=== PATIENT | female | born 1970 | race Caucasian/White ===

== ENCOUNTER 2024-10-12 09:45 | Outpatient (CLI) | payer BC, SELFPAY ==
--- OUTSIDE RECORDS SUMMARY | 2024-09-04 10:19 | XMS_ITS | Encounter Summary ---
Author Organization [facility] Address [address] [place] [address] Care Team Providers Care Farm Reporter Name Role Phone Veronica Morton M.D. Primary Care Provider [phone] Reason for Referral * Outpatient (Routine) - Closed Specialty Diagnoses / Procedures Referred By Contac t Referred To Contact Diagnoses Pain Hip Right Procedures DX Hip And Pelvis Right 2-3 Views DX Hip And Pelvis Right 4+ Views Veronica Morton M.D. [address] [place] [phone] Phone: tel: fax: [facility] Referral ID Status Reason Start Date Expiration Date Visits Re quested Visits Authorized [id number] Closed 07/25/2024 10/25/2025 1 1 Reason for Visit * Outpatient (Routine) - Closed Specialty Diagnoses / Procedures Referred By Contac t Referred To Contact Diagnoses Pain Hip Right Procedures DX Hip And Pelvis Right 2-3 Views DX Hip And Pelvis Right 4+ Views Veronica Morton M.D. [address] [place] [phone] Phone: tel: [facility] Referral ID Status Reason Start Date Expiration Date Visits Re quested Visits Authorized [id number] Closed 07/25/2024 10/25/2025 1 1 Encounter Details Date Type Department Care Team (Latest Contact Info) Description 09/04/2024 10:19 AM CDT - 09/04/2024 11:59 PM CDT Hospital Encounter Department of Radiology in [address] [phone] Veronica Morton M.D. [address] [place] [phone] Pain Hip Right Discharge Disposition: Home or Self Care Social History Tobacco Use Types Packs/Day Years Used Date Smoking Tobacco: Former Cigarettes 0.5 5 1 05/15/1985 - 03/15/1991 Smokeless Tobacco: Never Alcohol Use Standard Drinks/Week Comments Not Currently 0 (1 standard drink = 0.6 oz pur e alcohol) [facility] [employer] Answer Date Recorded In the past 12 months has e [employer], gas, oil, or water [employer] threatened to shut off services in your home? No 08/30/2024 Humiliation, Afraid, Rape, and Kick questionnair e Answer Date Recorded Within the last year, have y ou been afraid of your partner or ex-partner? No 07/15/2022 Within the last year, have y ou been humiliated or emotionally abused in other ways by your partner or ex-partner? No Within the last year, have y ou been kicked, hit, slapped, or otherwise physically hurt by your partner or ex-partner? No 07/15/2022 Within the last year, have y ou been raped or forced to have any kind of sexual activity by your partner or ex-partner? No 07/15/2022 Social Connection and Isolat ion Panel [NHANES] Answer Date Recorded In a typical week, how many times do you talk on the phone with family, friends, or neighbors? More than three times a week 07/15/2022 How often do you get togethe r with friends or relatives? More than three times a week 07/15/2022 How often do you attend [facility] or cheondoism services? 1 to 4 times per year 07/15/2022 Do you belong to any clubs o r organizations such as confucianist groups, unions, fraternal or athletic groups, or school groups? No 07/15/2022 How often do you attend meet ings of the clubs or organizations you belong to? Never 07/15/2022 Are you , , di vorced, , never , or living with a partner? 07/15/2022 AUDIT-C Answer Date Recorded Q1: How often do you have a drink containing alc ohol? Never 07/15/2022 Average Number of Drinks Not on file 023 Frequency of Binge Drinking Not on file 06/25 Overall Financial Resource Strain (CARDIA) Answe r Date Recorded How hard is it for you to pa y for the very basics like food, housing, medical care, and heating? Patient declined 07/15/2022 PHQ-2 Answer Date Recorded PHQ-2 Score 0 08/06/2024 [facility] - Occupational Stress Questionnaire Answer Date Recorded Do you feel stress - tense, restless, nervous, or anxious, or unable to sleep at night because your mind is troubled all the time - these days? Only a little 07/15/2022 Exercise Vital Sign Answer Date Recorde d On average, how many days pe r week do you engage in moderate to strenuous exercise (like a brisk walk)? 5 days 08/30/2024 On average, how many minutes do you engage in exercise at this level? 30 min 08/30/2024 Hunger Vital Sign Answer Date Recorded Within the past 12 months, y ou worried that your food would run out before you got the money to buy more. Never true 08/31/19 25 Within the past 12 months, t he food you bought just didn't last and you didn't have money to get more. Never true 08/30/2024 PRAPARE - Transportation Answer Date Re corded In the past 12 months, has l ack of transportation kept you from medical appointments or from getting medications? No 10/2024 In the past 12 months, has l ack of transportation kept you from meetings, work, or from getting things needed for daily living? No 08/30/2024 Depression Answer Date Recor ded PHQ-9 Total Score (max 27) 0 08/06 Nutrition Answer Date Recorded On average, how many serving s of fruits and vegetables do you eat per day (serving size is equal to 1 cup or approximately the size of a tennis ball)? 0-2 08/30/2024 Dental Answer Date Recorded Dental: Regular Dentist Yes 05/02/19 Employment Answer Date Recorded Employment status Retired 08/30/2024 Housing Stability Answer Date Recorded What is your living situation today? I have a [facility] place to live 08/30/2024 Education Answer Date Recorded What is the highest level of school you have completed or the highest degree you have received? Associate degree: academic program 05/02/2021 Comments No Sex and Gender Information Value Date Recorded Sex Assigned at Female 05/02/2021 1:59 PM CORE LOADER Legal Sex Female 8:17 AM CORE LOADER Gender Identity Female 05/02/2021 1:59 PM CORE LOADER Sexual Orientation Straight 05/02/2021 1: 59 PM CORE LOADER documented as of this encounter Medications at Time of Discharge albuterol 90 mcg/actuation inhalerIndications: Asthma Mild Intermittent (HCC) Inhale 1 puff every 6 (six) hours as needed for wheezing. 18 g 3 2 azithromycin (Zithromax) 500 mg tabletIndications:Tamara coats Travel And Immunization To use as needed for either Traveler's diarrhea or sinus infection during travel: For moderate diarrhea, 3-6 loose stools per day or 3-4 loose stools lasting greater than 2 days, begin Azithromycin 500 mg daily for up to 3 days. If no mprovement within 24 hours, take 2nd of the 3 azithromycin doses; if not improved after 48 hours, take third dose. For sinus pressure and pain lasting greater than 7 days with worsening or no improvement, can take 500mg once daily for 5 days., 5 tablet 5 cetirizine (ZyrTEC) 10 mg tablet Take 10 mg by mouth daily. estradioL (Estrace) 0.5 mg tablet Take 1 tablet (0.5 mg total) by mouth daily. 90 tablet 3 4 fluconazole (Diflucan) 150 mg tabletIndications:V aginitis Atrophic Take 1 tablet (150 mg total) by mouth daily. Can repeat in 3 days if with continued symptoms. 2 tablet 5 gabapentin (Neurontin) 100 mg capsule TAKE 1-3 CAPSULES (100 TO 300 MG) BY MOUTH AT BEDTIME 270 capsule 3 5 hydrocortisone (HYTONE) 2.5 % creamIndications:Pr uritus Apply 1 application. topically 2 (two) times a day as needed for irritation or rash. Apply to ears up to twice daily for 2 weeks in a row as needed for itching. If using for 2 weeks straight, take one week off prior to restarting. 30 g 11 3 hydrOXYzine (VistariL) 25 mg capsule Take 1 capsule (25 mg total) by mouth every 6 (six) hours as needed for anxiety. 30 capsule 5 lisinopriL 20 mg tablet TAKE 1 TABLET (20 MG) BY MOUTH DAILY 90 tablet 3 5 metroNIDAZOLE (FlagyL) 500 mg tabletIndications:V aginosis Bacterial Take 1 tablet (500 mg total) by mouth 2 (two) times a day. 14 tablet 4 omeprazole (PriLOSEC) [address] capsule TAKE 1 CAPSULE (40 MG) BY MOUTH DAILY 90 capsule 3 5 rizatriptan WIND TURBINE PERFORMANCE ENGINEER (Maxalt-WIND TURBINE PERFORMANCE ENGINEER) 10 mg disintegrating tablet Dissolve 1 tablet (10 mg total) in the mouth daily as needed for migraine. 12 tablet 3 5 SUMAtriptan (IMITREX) 100 mg tablet Take 100 mg by mouth as needed. 5 triamcinolone (Kenalog) 0.1 % creamIndications:De rmatitis Apply 1 Application topically as needed for rash. 30 g 11 [address] 1 each under the tongue daily. Med Name: Semaglutide/pyrid oxine HCL 10mg 250 OMG zolpidem (Ambien CR) 12.5 mg ER tablet TAKE ONE TABLET BY MOUTH EVERY DAY AT BEDTIME NEEDED FOR SLEEP 90 tablet 1 5 azelastine (Astelin) 137 mcg/spray (0.1 %) nasal sprayIndications:Al lergy Seasonal INSTILL 1TO 2 SPRAYS INTO EACH NOSTRIL TWO TIMES A DAY NEEDED FOR RHINITIS OR ALLERGIES. 30 mL 3 5 05/20/20 25 doxepin (SINEquan) 10 mg capsuleIndications: Pruritus TAKE 1 CAPSULE(10 MG) BY MOUTH AT BEDTIME NEEDED FOR SLEEP 90 capsule 3 3 09/30/19 25 naproxen (NAPROSYN) 500 mg tabletIndications:P ain Hip Bilateral TAKE 1 TABLET(500 MG) BY MOUTH TWICE DAILY NEEDED FOR PAIN 180 tablet 3 4 09/30/19 25 ICU RN Thyroid 60 mg tabletIndications:H ypothyroidism take 1 tablet by mouth daily 90 tablet 3 4 09/13/19 25 progesterone (PROMETRIUM) 100 mg capsuleIndications: Deficiency Estrogen Post Menopausal TAKE 1 CAPSULE(100 MG) BY MOUTH DAILY 90 capsule 3 4 09/14/19 25 thyroid, pork, 30 mg tablet Take 1 tablet (30 mg total) by mouth daily. TAKE 1 TABLET BY MOUTH DAILY, IN ADDITION TO 60 MG FOR TOTAL OF 90 MG DAILY 90 tablet 3 4 09/15/19 25 documented as of this encounter Plan of Treatment Not on file documented as of this encounter Procedures Procedure Name Priority Date/Time Associated Diagnosis Comments DX HIP AND PELVIS RIGHT 2-3 VIEWS RAD - Routine (most inpatients and all outpatients) 09/04/2024 10:30 AM CDT Pain Hip Right documented in this encounter Results * DX Hip And Pelvis Right 2-3 Views (09/04/2024 10:30 AM CDT) Anatomical Region Laterality Modality Lower Extremity, Pelvis, Hip , Musculoskeletal RST LOS, Musculoskeletal ARZ LOS, Muskuloskeletal FLA LOS Right Digit al Radiography Impressions 09/04/2024 12:21 PM CDT Bilateral acetabular over coverage, 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 Normal alignment. No acute fracture. SI joints and pubic symphysis are congruent. Mild lumbar spondylosis. Enthesopathic changes at the greater trochanters bilaterally and along the lateral aspect of the proximal left femoral diaphysis. Pelvic phleboliths. Soft tissue is within normal limits. No direct comparison available. Narrative 09/04/2024 12:21 PM CDT EXAM: DX HIP AND PELVIS RIGHT 2-3 VIEWS Procedure Note Lilia Bauman D.O. - 09/04/2024 EXAM: DX HIP AND PELVIS RIGHT 2-3 VIEWS IMPRESSION: Bilateral acetabular over coverage, seen with pincer-type femoroacetabularimpingement. Bilateral coxa profunda. Mild right and moderate left hipdegenerative joint disease. Normal alignment. No acute fracture. SI jointsand pubic symphysis are congruent. Mild lumbar spondylosis. Enthesopathic changes at thegreater trochanters bilaterally and along the lateral aspect of theproximal left femoral diaphysis. Pelvic phleboliths. Soft tissue is withinnormal limits. No direct comparison available. us Veronica Morton M.D. [facility] PROC EDURES Final Result documented in this encounter Visit Diagnoses Diagnosis Pain Hip Right documented in this encounter Additional Health Concerns Assessment Noted Time PHQ-9 Depression Total Score: 0 08/07/19 25 8:04 PM CDT documented as of this encounter Care Teams Farm Reporter Relationship Specialty Start Date End Date Veronica Mortno M.D. [address] [place] [phone] PCP - General Family Medicine 04/21/21 documented as of this encounter
--- OUTSIDE RECORDS SUMMARY | 2024-09-05 08:30 | XMS_ITS | Encounter Summary ---
Author Organization [facility] Address [address] [place] [address] Care Team Providers Care Service Order Taker Name Role Phone Veronica Morton M.D. Primary Care Provider [phone] Reason for Referral * Outpatient (Routine) - Authorized Specialty Diagnoses / Procedures Referred By Contac t Referred To Contact Diagnoses Pain Hip Right Procedures ddu-mfvz-dpwmnrnn-elbow arthrocentesis: R hip joint Nelly Damian APRN, C.N.P., D.N.P. [address] [place] [address] Phone: tel: fax: [facility] Referral ID Status Reason Start Date Expiration Date V isits Requested Visits Authorized [id number] Authorized 09/05/2024 12/06/2025 1 1 * Outpatient (Routine) - Closed Specialty Diagnoses / Procedures Referred By Contac t Referred To Contact Diagnoses Pain Hip Right Procedures FL Fluoro Less Than 1 Hour Nelly Damian APRN, C.N.P., D.N.P. [address] [place] [phone] Phone: tel: fax: [facility] Region Referral ID Status Reason Start Date Expiration Date Visits Re quested Visits Authorized [id number] Closed 09/05/2024 12/06/2025 1 1 Reason for Visit * Reason Comments Pain * Outpatient (Routine) - Closed Specialty Diagnoses / Procedures Referred By Adele rabago Referred To Contact Orthopedic Surgery Diagnoses Pain Hip Right Veronica Morton M.D. [address] [place] [phone] Phone: tel: fax: [facility] Region Referral ID Status Reason Start Date Expiration Date Visits Re quested Visits Authorized [id number] Closed 07/25/2024 01/24/2026 1 1 Encounter Details Date Type Department Care Team (Latest Contact Info) Description 09/05/2024 8:30 AM CDT Comprehensive Visit Department of Orthopedic Surgery in [address] [phone] Nelly Damain APRN, C.N.P., D.N.P. [address] [place] [phone] Pain Hip Right Discharge Disposition: Home or Self Care Social History Tobacco Use Types Packs/Day Years Used Date Smoking Tobacco: Former Cigarettes 0.5 5 1 05/15/1985 - 03/15/1991 Smokeless Tobacco: Never Tobacco Cessation:Counseling Given: Not Answered Alcohol Use Standard Drinks/Week Comments Not Currently 0 (1 standard drink = 0.6 oz pur e alcohol) [facility] Utilities Answer Date Recorded In the past 12 months has [employer], gas, oil, or water company threatened to shut off services in your [...] week 07/15/2022 How often do you attend chur ch or jehovah's witness services? 1 to 4 times per year 07/15/2022 Do you belong to any clubs o r organizations such as amish groups, unions, fraternal or athletic groups, or [...] Answer Date Recorded PHQ-2 Score 0 08/06/2024 [facility] - Occupational Stress [...] your living situation today? I have a [facility] place to live 08/30/2024 Education Answer Date Recorded What is the highest level of school you have completed or the highest degree you have received? Associate degree: academic program 05/02/2021 Comments No Sex and Gender Information Value Date Recorded Sex Assigned at Female 05/02/2021 1:59 PM ESCROW REPRESENTATIVE Legal Sex Female 8:17 AM ESCROW REPRESENTATIVE Gender Identity Female 05/02/2021 1:59 PM ESCROW REPRESENTATIVE Sexual Orientation Straight 05/02/2021 1: 59 PM ESCROW REPRESENTATIVE documented as of this encounter Progress Notes * Nelly Damian, LUCÍA, C.N.P., D.N.P. - 09/05/2024 8:30 AM CDT Milvia is a pleasant 54-year-old who comes in today with concerns regarding right hip pain. She statesthat she has had this for several months and has pain in her right buttock area that radiates down to the trochanteric area. She denies any particular groin pain rarely on occasion with certain motions she would note a little discomfort toward the groin. She states that she also notes occasional numbness that goes down her leg especially after standing for a period of time and notes a pop that occurs in her hip. Her symptoms seem to be worse at night. She has had a corticosteroid injection in the past. Physical exam-right hip with flexion of 100??. She has no particular pain with abduction or adduction. She does have some mild trochanteric bursa pain. She has some mild lumbar spinal pain to palpation. She does also have some pain into the buttock area. Strength is 4+ out of 5 when compared to thecontralateral side with leg lifts. Diagnostic studies x-ray shows Bilateral acetabular over coverage, seen with pincer-type [...] within normal limits. No direct comparison available. Impression and plan-Milvia is a 54-year-old who comes in today with concerns regarding her right hip pain. Most of her pain is in the buttock area which clearly could be because of her hip noting her x-ray however clinically her exam was not concerning or obvious today. And with symptoms of her leg becoming numb and weak at times I do worry if this could be related to her back. For this reason we discussed doing a diagnostic injection under fluoroscopy. She agrees and understands this plan. After brief discussion, consent form was obtained, per sterile technique under fluoroscopy 5 cc of 1% lidocaine and 5 cc of 0.25% Marcaine was injected into the joint space without difficulty and patient saskia erated the procedure well. She did ambulate out of the clinic and was given an assignment to watch and report the effect of this injection which she will contact us by portal. If indeed she finds improvement in her symptoms with the buttock in the lateral leg pain with the injection we will pursue a right total hip arthroplasty. If not we will further refer her to spine/pain clinic. She agrees and understands this plan and her questions were answered documented in this encounter Procedure Notes * Stephie Castellon L.P.N. - 09/05/2024 8:30 AM CDTAssociated Order(s): sih-zhrf-gjfegwea-elbow arthrocentesis: R hip joint Post-Procedure Diagnose(s): Pain Hip Right Hip site - R hip joint Performed by: Nelly Damian APRN, C.N.PTanisha, Migue.NTanishaP. Authorized by: Nelly Damian APRN, C.N.P., Migue.N.P. PROCEDURE DETAILS Indications: right hip pain Procedure Location hip Hip site -R hip joint Needle gauge: 21 G, length: 3 in Fluoroscopic image guidance used to localize target, identify at risk structures, and dynamically used to direct therapy to the target. Image(s) acquired and saved. Procedural Medication The following medications were administered at the target site(s) Local anesthetic: 10 mL BUPivacaine PF 0.25 % (2.5 mg/mL); 5 mL lidocaine 10 mg/mL (1 %) CONSENT Consent obtained: written (Risks, benefits and alternatives were discussed and a written Informed Consent was obtained. Please see Informed Consent form for further details.) UNIVERSAL PROTOCOL All relevant documentation and testing were reviewed and available. All required blood products, implants, devices and or special equipment were made available as applicable. Pre-procedure verification was conducted and the correct site was marked if required. A fire risk and smoke assessment were done as applicable. The procedural time-out to verify correct patient, correct side/site, and procedure was conducted prior to performing the procedure and confirmed in a procedural pause. PRE-PROCEDURE DETAILS Indications: right hip pain Appropriate hand hygiene, gown, cap, mask, protective eyewear, sterile gloves, skin preparation, sterile drape, and strict aseptic technique were utilized as applicable for the procedure. Site preparation: povidone-iodine POST-PROCEDURE DETAILS Procedure completed successfully: yes Complications: no apparent complications Discharge instructions: ice area as needed for comfort and follow-up with ordering provider Comments The procedure site was marked by the proceduralist and verified with the patient. A time out/final pause was completed with verification of patient identity using two identifiers, confirmation of thesite and side(s), agreement on the procedure to be performed, and appropriate fire risk assessment. documented in this encounter Plan of Treatment Not on file documented as of this encounter Procedures Procedure Name Priority Date/Time Associated Diagnosis Comments [place] ARTHCS ASP/INJ MJR JT WO US Routine 09/05/2024 8:30 AM CDT Pain Hip Right documented in this encounter Results * FL Fluoro Less Than 1 Hour (09/05/2024 9:21 AM CDT) Narrative [address] VIVEROSN - 09/05/2024 9:21 AM CDT This exam does not require a radiologist review or interpretation. Please refer to the patient's medical record on this date for clinical details. us Nelly Damian APRN, C.N.P., D.N.P. IMG FLUOROSCO PY PROCEDURES Final Result [id number] * [place] ARTHCS ASP/INJ MJR JT WO US (09/05/2024 8:30 AM CDT) Narrative [facility] - 09/05/2024 8:30 AM CDT Stephie Castellon L.P.N. 09/05/2024 3:48 PM Hip site - R hip joint Performed by: Nelly Damian APRN, C.N.P., D.N.P. Authorized by: Nelly Damian APRN, C.N.P., D.N.P. PROCEDURE DETAILS Indications: right hip pain Procedure Location hip Hip site -R hip joint Needle gauge: 21 G, length: 3 in Fluoroscopic image guidance used to localize target, identify at risk structures, and dynamically used to direct therapy to the target. Image(s) acquired and saved. Procedural Medication The following medications were administered at the target site(s) Local anesthetic: 10 mL BUPivacaine PF 0.25 % (2.5 mg/mL); 5 mL lidocaine 10 mg/mL (1 %) CONSENT Consent obtained: written (Risks, benefits and alternatives were discussed and a written Informed Consent was obtained. Please see Informed Consent form for further details.) UNIVERSAL PROTOCOL All relevant documentation and testing were reviewed and available. All required blood products, implants, devices and or special equipment were made available as applicable. Pre-procedure verification was conducted and the correct site was marked if required. A fire risk and smoke assessment were done as applicable. The procedural time-out to verify correct patient, correct side/site, and procedure was conducted prior to performing the procedure and confirmed in a procedural pause. PRE-PROCEDURE DETAILS Indications: right hip pain Appropriate hand hygiene, gown, cap, mask, protective eyewear, sterile gloves, skin preparation, sterile drape, and strict aseptic technique were utilized as applicable for the procedure. Site preparation: povidone-iodine POST-PROCEDURE DETAILS Procedure completed successfully: yes Complications: no apparent complications Discharge instructions: ice area as needed for comfort and follow-up with ordering provider Comments The procedure site was marked by the proceduralist and verified with the patient. A time out/final pause was completed with verification of patient identity using two identifiers, confirmation of the site and side(s), agreement on the procedure to be performed, and appropriate fire risk assessment. Nelly Damian APRN, C.N.P., D.N.P. PROCEDURE/MIN OR SURGICAL ORDERABLES Final Result [facility] NA documented in this encounter Visit Diagnoses Diagnosis Pain Hip Right Pain Hip Right documented in this encounter Administered Medications Inactive Administered Medications - up to 3 most recent administrations Medication Order MAR Action Action Date Dose Rate Site BUPivacaine PF 0.25 % (2.5 mg/mL) injection 10 mL (Marcaine) 10 mL, injection, One-Time Injection, Starting on Wed09/05/24 at 0830, For 1 doseIndications:Pain Hip Right Given 09/05/2024 8:30 AM CDT 10 mL lidocaine 10 mg/mL (1 %) injection 5 mL (Xylocaine) 5 mL, injection, One-Time Injection, Starting on Wed09/05/24 at 0830, For 1 doseIndications:Pain Hip Right Given 09/05/2024 8:30 AM CDT 5 mL documented in this encounter Additional Health Concerns Assessment Noted Time PHQ-9 Depression Total Score: 0 08/07/19 25 8:04 PM CDT documented as of this encounter Care Teams Service Order Taker Relationship Specialty Start Date End Date Veronica Morton M.D. [id number] [phone] PCP - General Family Medicine 04/21/21 documented as of this encounter
--- OUTSIDE RECORDS SUMMARY | 2024-09-05 09:01 | XMS_ITS | Encounter Summary ---
Author Organization [facility] Address [address] [place] [address] Care Team Providers Care Procurement Inspector Name Role Phone Veronica Morton M.D. Primary Care Provider [phone] Reason for Referral * Outpatient (Routine) - Closed Specialty Diagnoses / Procedures Referred By Contac t Referred To Contact Diagnoses Pain Hip Right Procedures FL Fluoro Less Than 1 Hour Nelly Damian APRN, C.N.P., D.N.P. [address] [place] [address] Phone: tel: fax: [facility] Referral ID Status Reason Start Date Expiration Date Visits Re quested Visits Authorized [id number] Closed 09/05/2024 12/06/2025 1 1 Reason for Visit * Outpatient (Routine) - Closed Specialty Diagnoses / Procedures Referred By Contac t Referred To Contact Diagnoses Pain Hip Right Procedures FL Fluoro Less Than 1 Hour Nelly Damian APRN, C.N.P., D.N.P. [address] [place] [address] Phone: tel: fax: [facility] Region Referral ID Status Reason Start Date Expiration Date Visits Re quested Visits Authorized [id number] Closed 09/05/2024 12/06/2025 1 1 Encounter Details Date Type Department Care Team (Latest Contact Info) Description 09/05/2024 9:01 AM CDT - 09/05/2024 11:59 PM CDT Hospital Encounter Department of Radiology in [address] [phone] Nelly Damian, LUCÍA, C.N.P., D.N.P. [address] [place] [address] [phone] Pain Hip Right Discharge Disposition: Home or Self Care Social History Tobacco Use Types Packs/Day Years Used Date Smoking Tobacco: Former Cigarettes 0.5 5 1 05/15/1985 - 03/15/1991 Smokeless Tobacco: Never Alcohol Use Standard Drinks/Week Comments Not Currently 0 (1 standard drink = 0.6 oz pur e alcohol) [facility] Utilities Answer Date Recorded In the past 12 months has [email or web address], gas, oil, or water [employer] threatened to shut off services in your [...] week 07/15/2022 How often do you attend [facility] or church services? 1 to 4 times per year 07/15/2022 Do you belong to any clubs o r organizations such as jewish groups, unions, fraternal or athletic groups, or [...] Answer Date Recorded PHQ-2 Score 0 08/06/2024 [facility] of Occupat ional [facility] - Occupational Stress Questionnaire Answer Date Recorded [...] your living situation today? I have a [facility] place to live 08/30/2024 Education Answer Date Recorded What is the highest level of school you have completed or the highest degree you have received? Associate degree: academic program 05/02/2021 Comments No Sex and Gender Information Value Date Recorded Sex Assigned at Female 05/02/2021 1:59 PM PRODUCTION FOREMAN Legal Sex Female 8:17 AM PRODUCTION FOREMAN Gender Identity Female 05/02/2021 1:59 PM PRODUCTION FOREMAN Sexual Orientation Straight 05/02/2021 1: 59 PM PRODUCTION FOREMAN documented as of this encounter Medications at [...] MOUTH DAILY 90 capsule 3 5 rizatriptan TEMPERER (Maxalt-TEMPERER) 10 mg disintegrating tablet Dissolve 1 tablet [...] (Astelin) 137 mcg/spray (0.1 %) nasal sprayIndications:Al sugey Seasonal INSTILL 1TO 2 SPRAYS INTO EACH NOSTRIL TWO TIMES A DAY NEEDED FOR RHINITIS OR ALLERGIES. 30 mL 3 5 09/13/19 25 doxepin (SINEquan) 10 mg capsuleIndications: Pruritus TAKE 1 CAPSULE(10 MG) BY MOUTH AT BEDTIME NEEDED FOR SLEEP 90 capsule 3 3 09/30/19 25 naproxen (NAPROSYN) 500 mg tabletIndications:P ain Hip Bilateral TAKE 1 TABLET(500 MG) BY MOUTH TWICE DAILY NEEDED FOR PAIN 180 tablet 3 4 09/30/19 25 CLINICAL EDUCATION ASSISTANT Thyroid 60 mg tabletIndications:H ypothyroidism take 1 [...] Procedure Name Priority Date/Time Associated Diagnosis Comments FL FLUORO LESS THAN 1 HOUR RAD - Routine (most inpatients and all outpatients) 09/05/2024 9:21 AM CDT Pain Hip Right documented in this encounter Results * FL Fluoro Less Than 1 Hour (09/05/2024 9:21 AM CDT) Narrative [address] [facility] - 09/05/2024 9:21 AM CDT This exam does not require a radiologist review or interpretation. Please refer to the patient's medical record on this date for clinical details. us Nelly Damian APRN, C.N.P., D.N.P. IMG FLUOROSCO PY PROCEDURES Final Result [id number] [facility] documented in this encounter Visit Diagnoses Diagnosis Pain Hip Right documented in this encounter Additional Health Concerns Assessment Noted Time PHQ-9 Depression Total Score: 0 08/07/19 8:04 PM CDT documented as of this encounter Care Teams Procurement Inspector Relationship Specialty Start Date End Date Veronica Morton M.D. [address] [place] [address] [phone] PCP - General Family Medicine 04/21/21 documented as of this encounter
--- OUTSIDE RECORDS SUMMARY | 2024-09-29 08:20 | XMS_ITS | Encounter Summary ---
Author Organization [facility] Address [address] [place] [address] Care Team Providers Care Cemetery Workers Supervisor Name Role Phone Veronica Morton M.D. Primary Care Provider [phone] Reason for Visit * Outpatient (Routine) - Closed Specialty Diagnoses / Procedures Referred By Adele rabago Referred To Contact Dermatology Diagnoses Screening Examination Skin Cancer Veronica Morton M.D. [address] [place] [phone] Phone: tel: fax: [facility] Referral ID Status Reason Start Date Expiration Date Visits Re quested Visits Authorized [id number] Closed 07/25/2024 01/24/2026 1 1 Encounter Details Date Type Department Care Team (Latest Contact Info) Description 09/29/2024 8:20 AM CDT Comprehensive Visit Department of Dermatology in [address] [place] [address] Ivelisse Ruiz M.D. [address] [place] [address] Angioma De La Rosa (Primary Dx); Screening Examination Skin Cancer; Pruritus; Keratosis Seborrheic; Nevi Multiple; Dermatoheliosis; Dermatofibroma; Personal History Of Other Malignant Neoplasm Of Skin; Excoriation (Skin-Picking) Disorder Social History Tobacco Use Types Packs/Day Years Used Date Smoking Tobacco: Former Cigarettes 0.5 5 1 05/15/1985 - 03/15/1991 Smokeless Tobacco: Never Alcohol Use Standard Drinks/Week Comments Not Currently 0 (1 standard drink = 0.6 oz pur e alcohol) [facility] Utilities Answer Date Recorded In the past 12 months has e electric, gas, oil, or water company threatened to [...] often do you attend chur ch or alevism services? 1 to 4 times per year 07/15/2022 Do you belong to any clubs o r organizations such as lutheran groups, unions, fraternal or athletic groups, or [...] Answer Date Recorded PHQ-2 Score 0 08/06/2024 [facility] of Occupat ional [facility] - Occupational Stress Questionnaire Answer Date Recorded [...] money to buy more. Never true 08/31/19 Within the past 12 months, t he [...] your living situation today? [facility] 08/30/2024 Education Answer Date Recorded What is the highest level of school you have completed or the highest degree you have received? Associate degree: academic program 05/02/2021 Comments No Sex and Gender Information Value Date Recorded Sex Assigned at Female 05/02/2021 1:59 PM BAKER [employer]INT Legal Sex Female 8:17 AM BAKER PAINT Gender Identity Female 05/02/2021 1:59 PM BAKER PAINT Sexual Orientation Straight 05/02/2021 1: 59 PM BAKER PAINT documented as of this encounter Progress Notes * Ivelisse Ruiz M.D. - 09/29/2024 8:20 AM CDT [facility] Dermatology Supervised by: El Mckinnon M.D. Correspondence to: Ivelisse Ruiz M.D. SUBJECTIVE Chief Complaint/Reason for visit Skin cancer screening examination History of Present Illness Ms. Milvia Marquis is a 54 y.o. female who presents today, unaccompanied, for the above. She has a history of NMSC last treated with Mohs in [place] in 2019. She was adopted and doesn't know her familyhistory. She has a history of tanning bed use and blistering sunburns but started being diligent with sun protection after her Mohs surgery. Last visit: The patient is new to [facility]. Today: She describes she has one spot on the top of her head that concerned her but seems to have resolved. 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 No other skin concerns today. 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 most recently in [place] and [place].She has been in [place] for about 3 years now and likes it but feels of the [place] are really harsh. She goes to [place] every year with her family. Her child and grand kids live with her in [place]. OBJECTIVE Physical Examination General: Awake, alert, in no acute distress, with appropriate affect. Skin: Full skin examination of the scalp, face, neck, chest, abdomen, back, bilateral upper extremities, bilateral lower extremities, and buttocks, sparing the genitalia, performed and revealed: Elaine II skin type. Dermatoheliosis in sun exposed areas. Primarily over the trunk and also on the extremities, there are scattered small brown round maculesand papules; many of these are examined dermoscopically and reveal regular symmetric network and appear consistent with banal-appearing nevi. Scattered waxy, uhgmr-ks-jaejihomb, brown-montez macules, papules and plaques, consistent with seborrheic keratoses. Over the trunk, there are a few bright red dome shaped papules, consistent with de la rosa angiomas. Excoriated papules over the trunk and extremities consistent with patient reported skin picking ASSESSMENT / PLAN #1 Skin cancer screening examination #2 Personal history of non-melanoma skin cancer, as outlined in HPI #3 Dermatoheliosis Sun protection, sun avoidance, the warning signs and symptoms of skin cancer, and the proper use ofsunscreens were reviewed with the patient. Recommend daily use of SPF 30+ broad spectrum sunscreen. #4 Dermatofibroma(s) #5 De La Rosa angiomas #6 Seborrheic keratoses The benign nature of the skin lesion(s) was discussed with the patient. No treatment is required. Irecommend continued observation. Should symptoms or changes develop related to this condition, I would recommend a return visit for reassessment. #7 Excoriation disorder Patient has a history of excoriation disorder which was previously treated with p.r.n. doxepin 10 mg at nighttime as needed. She has not had this prescription for awhile and would like a refill today. She has some evidence on exam today of excoriated lesions. She does not have generalized xerosis or other, large areas of excoriation. We discussed additional workup but patient would like to just continue treatment with doxepin today. Plan: - Continue doxepin 10 mg at nighttime as needed for pruritus All questions answered. Follow-up: PRN; Return to primary care Sushila Ruiz M.D. Cosigned by El Dai M.D. at 09/29/2024 11:30 AM CDT Associated attestation - El Dai M.D. - 09/29/2024 11:30 AM CDT I saw and evaluated the patient, participating in the chapin portions of the service. I reviewed the resident???s note. I agree with the resident???s findings and plan. documented in this encounter Plan of Treatment Not on file documented as of this encounter Visit Diagnoses Diagnosis Angioma De La Rosa- Primary Screening Examination Skin Cancer Pruritus Keratosis Seborrheic Nevi Multiple Dermatoheliosis Dermatofibroma Personal History Of Other Malignant Neoplasm Of Skin Excoriation (Skin-Picking) Disorder documented in this encounter Additional Health Concerns Assessment Noted Time PHQ-9 Depression Total Score: 0 08/07/19 25 8:04 PM CDT documented as of this encounter Care Teams Cemetery Workers Supervisor Relationship Specialty Start Date End Date Veronica Morton M.D. [address] [place] [phone] PCP - General Family Medicine 04/21/21 documented as of this encounter
--- NOTE | 2024-10-12 10:15 | CRLHL7_ITS ---
For Patients: As a result of the Century Cures Act, medical imaging exams and procedure reports are released immediately into your electronic medical record. You may view this report before your referring provider. If you have questions, please contact your health care provider. Indication: Right hip pain Comparison: None. Procedure : Informed consent was obtained. The site was marked. Time-out was performed. The skin of the right hip was cleansed with ChloraPrep. A sterile drape was placed. 8 cc of 1 percent lidocaine was administered for superficial anesthesia. Subsequently a 22 gauge spinal needle was introduced into the right hip andrew joint under intermittent fluoroscopic guidance. Injection of 7 cc 1 percent lidocaine and 2 cc 40 milligram/cc Depo-Medrol then performed into the right hip joint. The needle was removed and hemostasis achieved with direct pressure. A dressing was placed. The patient tolerated the procedure well without immediate complication. Total fluoroscopy time 14 seconds. Impression: Successful fluoroscopically guided right hip injection with 80 milligrams of Depo-Medrol. Dictated by Gary Campos MD @ 10/12/2024 12:00:57 PM (Electronically Signed)
--- OUTSIDE RECORDS SUMMARY | 2024-10-13 00:56 | XMS_ITS | Clinical Summary ---
Author Organization [facility] Address [address] [place] [id number] Care Team Providers Care Junior Manufacturing Engineer Name Role Phone Veronica Morton M.D. Primary Care Provider [phone] Source Comments Patient records contain information from all sites at [facility]. For routine questions regarding patient records, call [phone] during business hours, M-F 8:00 AM - 5:00 PM Central Time. Record requests for emergency care only can be directed to [phone] at any time.[facility] Allergies Active Allergy Reactions Criticality Noted Date Comments Cat Dander Itching 05/09/2021 Grass Pollen Itching 04/26/2008 Levothyroxine Other (see comments) High 04/27/2019 Allergy to levothyroxine generic. Allergic to brand Synthroid. Ragweed Other (see comments),Itching 08/07/2010 Tree And Shrub Pollen Itching 04/26/2008 Medications * This document contains information received from the source organization and may not represent a complete record from that organization. cetirizine (ZyrTEC) 10 mg tablet Take 10 mg by mouth daily. Active SUMAtriptan (IMITREX) 100 mg tablet Take 100 mg by mouth as needed. 015 Active albuterol 90 mcg/actuation inhalerIndication s:Asthma Mild Intermittent (HCC) Inhale 1 puff every 6 (six) hours as needed for wheezing. 18 g 3 022 Active hydrocortisone (HYTONE) 2.5 % creamIndications: Pruritus Apply 1 application. topically 2 (two) times a day as needed for irritation or rash. Apply to ears up to twice daily for 2 weeks in a row as needed for itching. If using for 2 weeks straight, take one week off prior to restarting. 30 g 11 023 Active triamcinolone (Kenalog) 0.1 % creamIndications: Dermatitis Apply 1 Application topically as needed for rash. 30 g 11 024 Active estradioL (Estrace) 0.5 mg tablet Take 1 tablet (0.5 mg total) by mouth daily. 90 tablet 3 024 Active metroNIDAZOLE (FlagyL) 500 mg tabletIndications :Vaginosis Bacterial Take 1 tablet (500 mg total) by mouth 2 (two) times a day. 14 tablet 024 Active rizatriptan CARDIAC CATH TECH (Maxalt-CARDIAC CATH TECH) 10 mg disintegrating tablet Dissolve 1 tablet (10 mg total) in the mouth daily as needed for migraine. 12 tablet 3 025 Active azithromycin (Zithromax) 500 mg tabletIndications :Counseling Travel And Immunization To use as needed [...] once daily for 5 days., 5 tablet 025 Active fluconazole (Diflucan) 150 mg tabletIndications :Vaginitis Atrophic Take 1 tablet (150 mg total) by mouth daily. Can repeat in 3 days if with continued symptoms. 2 tablet 025 Active gabapentin (Neurontin) 100 mg capsule TAKE 1-3 CAPSULES (100 TO 300 MG) BY MOUTH AT BEDTIME 270 capsule 3 025 Active omeprazole (PriLOSEC) [address] capsule TAKE 1 CAPSULE (40 MG) BY MOUTH DAILY 90 capsule 3 025 Active lisinopriL 20 mg tablet TAKE 1 TABLET (20 MG) BY MOUTH DAILY 90 tablet 3 025 Active zolpidem (Ambien CR) 12.5 mg ER tablet TAKE ONE TABLET BY MOUTH EVERY DAY AT BEDTIME NEEDED FOR SLEEP 90 tablet 1 025 Active UNABLE TO FIND Place 1 each under the tongue daily. Med Name: Semaglutide/pyr idoxine HCL 10mg 250 OMG Active hydrOXYzine (VistariL) 25 mg capsule Take 1 capsule (25 mg total) by mouth every 6 (six) hours as needed for anxiety. 30 capsule 025 Active [place] Thyroid 60 mg tabletIndications :Hypothyroidism TAKE 1 TABLET BY MOUTH DAILY 90 tablet 3 025 Active azelastine (Astelin) 137 mcg/spray (0.1 %) nasal sprayIndications: Allergy Seasonal INSTILL 1-2 SPRAYS INTO EACH NOSTRIL 2 TIMES A DAY NEEDED FOR RHINITIS OR ALLERGIES 30 mL 3 025 Active progesterone (Prometrium) 100 mg capsuleIndication s:Deficiency Estrogen Post Menopausal Take 1 capsule (100 mg total) by mouth daily. 90 capsule 3 025 Active thyroid, pork, 30 mg tablet Take 1 tablet (30 mg total) by mouth daily. TAKE 1 TABLET BY MOUTH DAILY, IN ADDITION TO 60 MG FOR TOTAL OF 90 MG DAILY 90 tablet 3 025 Active naproxen (Naprosyn) 500 mg tabletIndications :Pain Hip Bilateral TAKE 1 TABLET (500 MG) BY MOUTH TWICE DAILY NEEDED FOR PAIN 180 tablet 3 025 Active doxepin (SINEquan) 10 mg capsuleIndication s:Pruritus Take 1 capsule (10 mg total) by mouth at bedtime as needed for sleep (and pitching). 60 capsule 3 025 Active doxepin (SINEquan) 10 mg capsuleIndication s:Pruritus TAKE 1 CAPSULE(10 MG) BY MOUTH AT BEDTIME NEEDED FOR SLEEP 90 capsule 3 023 2024 Discontinued(Karey tam) naproxen (NAPROSYN) 500 mg tabletIndications :Pain Hip Bilateral TAKE 1 TABLET(500 MG) BY MOUTH TWICE DAILY NEEDED FOR PAIN 180 tablet 3 024 2024 Discontinued thyroid, pork, 30 mg tablet Take 1 tablet (30 mg total) by mouth daily. 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 2/6 systolic. Hot Flash 05/10/2021 Overview (05/10/2021): Estradiol was not helpful previously. Progesterone has been helpful. Primary Osteoarthritis Hip Bilateral 05/10/2021 Overview (05/10/2021): Right greater than left. She currently uses Aleve or Naprosyn as needed for pain. She has received 1 prior cortisone injection which has been very helpful. Hypothyroidism 05/09/2021 Allergy Seasonal 05/09/2021 Overview (05/10/2021): Previously on allergy shots for 5 years when lived in [place]. Trees, weeds, shrubs, grasses are triggers. Asthma Mild Intermittent 05/09/2021 Overview (05/09/2021): Needs albuterol when allergies flare up. Flares once every 4 months twice daily for 5 days will use albuterol. Migraine Headache 05/09/2021 Overview (05/09/2021): 3 bad ones per year. She uses Maxalt as needed. When they come they last for 5 days at a time. She takes Sumatriptan only if she catches it too late. Maxalt is only if she catches it right away. Dermatitis Atopic 05/09/2021 Screening Cancer Colon 05/09/2021 Overview (05/09/2021): Added automatically from request for surgery [id number] Leukocytosis 07/17/2020 Overview (05/10/2021): Previously saw Hematology who was not concerned. It has been steadily elevated. Hypertension Essential Primary 03/03/2016 Anxiety 03/03/2016 Encounters * This document contains information received from the source organization and may not represent a complete record from that organization. Date Type Department Care Team Description 09/29/2024 8:20 AM CDT Comprehensive Visit Department of Dermatology in [place], [place] [address] [place] [address] [place] [address] Ivelisse Ruiz M.D. Angioma De La Rosa (Primary Dx); Screening Examination Skin Cancer; Pruritus; Keratosis Seborrheic; Nevi Multiple; Dermatoheliosis; Dermatofibroma; Personal History Of Other Malignant Neoplasm Of Skin; Excoriation (Skin-Picking) Disorder 09/26/2024 Refill Department of Family Medicine, [facility], in [address] [place] [address] Mattie Carter M.D. Med Refill 09/14/2024 Clinical Communication Department of Family Medicine, [facility], in [address] [phone] Veronica Morton M.D. Med Refill 09/13/2024 Refill Department of Family Medicine, [facility], in [address] [phone] Veronica Morton M.D. Med Refill 09/08/2024 Refill Department of Family Medicine, [facility], in [address] [phone] Veronica Morton M.D. Med Refill 09/05/2024 9:01 AM CDT - 09/05/2024 11:59 PM CDT Hospital Encounter Department of Radiology in [address] [phone] Nelly Damian APRN, C.N.Duncan, D.N.P. Pain Hip Right Discharge Disposition: Home or Self Care 09/05/2024 8:30 AM CDT Comprehensive Visit Department of Orthopedic Surgery in [address] [phone] Nelly Damian APRN C.N.Karishma., D.N.P. Pain Hip Right Discharge Disposition: Home or Self Care 09/04/2024 10:19 AM CDT - 09/04/2024 11:59 PM CDT Hospital Encounter Department of Radiology in [address] [phone] Veronica Morton M.D. Pain Hip Right Discharge Disposition: Home or Self Care 08/14/2024 10:52 AM CDT - 08/14/2024 11:59 PM CDT Hospital Encounter Department of Radiology in [address] [phone] Veronica Morton M.D. Nodule Thyroid Discharge Disposition: Home or Self Care 08/14/2024 Results Follow-Up Department of Family Medicine, [facility], in [address] [phone] Veronica Morton M.D. [place] Thyroid 08/14/2024 Orders Only Department of Family Medicine, [facility], in [address] [phone] Veronica Morton M.D. Nodule Thyroid (Primary Dx) 07/25/2024 9:20 AM CDT Office Visit Department of Family Medicine, [facility], in [address] [address] Veronica Morton M.D. General Medical Examination Adult (Primary Dx); Murmur Heart; Hypertension Essential Primary; Hypothyroidism; Arthritis Rheumatoid (HCC); Pain Hip Right; Panic Disorder Episodic Paroxysmal Anxiety; Sinusitis Acute; Screening Examination Skin Cancer; Asthma Mild Intermittent (HCC); Impaired Fasting Glucose; Screening Lipid Discharge Disposition: Home or Self Care 07/25/2024 Results Follow-Up Department of Family Medicine, [facility], in [address] [phone] Veronica Morton M.D. Comprehensive Metabolic Panel, Glucose, Fasting, Hemoglobin A1c, Additional followed-up results: 3 07/24/2024 9:24 AM CDT - 07/24/2024 11:59 PM CDT Hospital Encounter Department of Laboratory Medicine in [address] [phone] Veronica Morton M.D. PreDiabetes; Screening Lipid; Hypothyroidism; Leukocytosis Discharge Disposition: Home or Self Care 07/19/2024 Refill Department of Family Medicine, [facility], [address] [phone] Milvia Alcala APRN, C.N.P. Med Refill 07/14/2024 Refill Department of [facility] Medicine, [facility], [address] [phone] Veronica Morton M.D. Med Refill from Last 3 Months Immunizations Immunization Administration Dates Next Due Influenza, Seasonal, Injectable 02/20/2013,04/27 PCV20 07/22/2022 PPSV23 05/09/2021 RZV (SHINGRIX) 07/23/2023,07/22/2022 SARS-COV-2 (COVID-19) - MODERNA(Discontinued) 04/02/2021,11/07/2020,10/24/2020 Tdap 07/25/2024,09/14/2013 influenza vaccine quad (FLUZ ONE/FLUARIX) (6 months and older)(PF) 05/09/2021 Family History * Patient is adopted Medical History Relation Name Comments Colon cancer Aunt Paternal Colon cancer Father Stalin Prostate cancer Father Stalin Stroke Father Stalin Colon cancer Father's Sister Marsha Breast cancer Maternal Grandmother Unknown Colon cancer Paternal Great Grandfather Paternal Relation Name Status Comments Aunt Paternal Father Stalin Father's Sister Marsha Maternal Grandmother Unknown Paternal Great Grandfather Paternal Social History Tobacco Use Types Packs/Day Years Used Date Smoking Tobacco: Former Cigarettes 0.5 5 1 05/15/1985 - 03/15/1991 Smokeless Tobacco: Never Tobacco Cessation:Counseling Given: Not Answered Alcohol Use Standard Drinks/Week Comments Not Currently 0 (1 standard drink = 0.6 oz pur e alcohol) [facility] [employer] Answer Date Recorded In the past 12 months has e [employer], gas, oil, or water [employer] threatened to shut off services in your [...] often do you attend chur ch or adventism services? 1 to 4 times per year 07/15/2022 Do you belong to any clubs o r organizations such as quaker groups, unions, fraternal or athletic groups, or [...] Answer Date Recorded PHQ-2 Score 0 08/06/2024 [facility] - Occupational [...] your living situation today? I have a [facility] place to live 08/30/2024 Education Answer Date Recorded What is the highest level of school you have completed or the highest degree you have received? 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 Oxygen Saturation 98% 07/23/2023 11:01 AM CDT Inhaled Oxygen Concentration - - Weight 116 kg (256 lb 9.9 oz) 07/25/2024 9:19 AM CDT Height 171.3 cm (5' 7.44) 07/25/2024 9:19 AM CD T Body Mass Index 39.67 07/25/2024 9:19 AM CDT Plan of Treatment Health Maintenance Due Date Last Done Comments CT Colonography 1970 Cologuard 1970 HIV Screening 1970 Hepatitis B Vaccines (1 of 3 - 19+ 3-dose series) 1989 COVID-19 Vaccine ( season) 2023 04/02/2021, 11/07/2020, 10/24/2020 Influenza Vaccine (#1) 2024 , 02/20/2013, 04/27/2012 Mammogram 07/03/2025 07/03/2024, 11/2023, 06/02/2022, Additional history exists Creatinine Level (Kidney Function Test) 07/24/2025 07/24/2024, 08/06/2023, 07/21/2023, Additional history exists Fasting Glucose for Diabetes Screening 07/24/2025 07/24/2024, 07/24/2024, 08/06/2023, Additional history exists Potassium Level 07/24/2025 07/24/2024, 07/25, 07/21/2023, Additional history exists Sodium Level 07/24/2025 07/24/2024, 07/25, 07/21/2023, Additional history exists Thyroid Stimulating Hormone (TSH) test for thyroid function 07/24/2025 07/24/2024, 09/06/2023, 07/21/2023, Additional history exists Office Visit for Blood Pressure Check / Re-check 07/25/2025 07/25/2024 Visit: Chronic Disease, age 18+ 07/25/2025 07/25/2024, 07/23/2023 Colonoscopy 04/08/2028 04/08/2023 Colorectal Cancer Surveillance 04/08/2028 Lipid (Cholesterol) Screening 07/24/2029 07/24/2024, 07/21/2023, 07/09/2022, Additional history exists DTaP,Tdap,and Td Vaccines (3 - Td or Tdap) 07/25/2034 07/25/2024, 09/14/2013 Hepatitis C Screening Addressed 01/07/2016 (Performed elsewhere) Overridden with the intention of not completing the topic Pneumococcal vaccine (50+ years) Completed 07/22/2022, 05/09/2021 Zoster Vaccines Completed 07/23/2023, 07/22/2022 Depression Screening (Annual PHQ-2) Completed 07/25/2024, 07/20/2024 IPV Vaccines Aged Out No longer eligi ble based on patient's age to complete this topic Procedures Procedure Name Priority Date/Time Associated Diagnosis Comments FL FLUORO LESS THAN 1 HOUR RAD - Routine (most inpatients and all outpatients) 09/05/2024 9:21 AM CDT Pain Hip Right [place] ARTHCS ASP/INJ MJR JT WO US Routine 09/05/2024 8:30 AM CDT Pain Hip Right DX HIP AND PELVIS RIGHT 2-3 VIEWS RAD - Routine (most inpatients and all outpatients) 09/04/2024 10:30 AM CDT Pain Hip Right US THYROID RAD - Routine (most inpatients and all outpatients) 08/14/2024 11:44 AM CDT Nodule Thyroid CBC WITH DIFFERENTIAL, B Routine 07/24/2024 9:30 AM CDT Leukocytosis THYROID FUNCTION CASCADE, S Routine 07/24/2024 9:30 AM CDT Hypothyroidism LIPID PANEL, S Routine 07/24/2024 9:30 AM CDT Screening Lipid HEMOGLOBIN A1C, B Routine 07/24/2024 9:3 0 AM CDT PreDiabetes GLUCOSE, FASTING, S/P Routine 07/24/2024 9:30 AM CDT PreDiabetes COMPREHENSIVE METABOLIC PANEL, S/P Routine 07/24/2024 9:30 AM CDT PreDiabetes BI BREAST SCREENING BILATERAL WITH TOMOSYNTHESIS RAD - Routine (most inpatients and all outpatients) 07/03/2024 11:15 AM CDT Screening Mammogram Breast Cancer COLONOSCOPY Routine 04/08/2023 7:59 AM 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 Please refer to the patient's medical record on this date for clinical details. us Nelly Damian APRN, C.N.P., D.N.P. IMG FLUOROSCO PY PROCEDURES Final Result [id number] LOS SEMN * [place] ARTHCS ASP/INJ MJR JT WO US (09/05/2024 [...] OR SURGICAL ORDERABLES Final Result MMODAL NA * DX Hip And Pelvis Right 2-3 [...] limits. No direct comparison available. us Veronica PADILLA DIAGNOSTIC IMAGING PROC EDURES Final Result * US Thyroid (08/14/2024 11:44 AM CDT) Anatomical Region Laterality Modality Head and Neck, Ultrasound RS T LOS, Ultrasound ARZ LOS, Ultrasound FLA LOS N/A Ultrasound Impressions 08/14/2024 1:13 PM CDT 1. Diffusely heterogeneous and hyperemic thyroid gland, suggesting thyroiditis. 2. Multiple nodules in or adjacent to the isthmus with largest nodule 0.8 cm. Narrative 08/14/2024 1:13 PM CDT EXAM: US THYROID COMPARISON: None. FINDINGS: The right thyroid lobe measures: 2.3 cm x 2.1 cm x 5.3 cm The left thyroid lobe measures: 2.1 cmx2.0 cmx5.3 cm The isthmus measures: 7.2 mm in AP diameter. The thyroid parenchyma is diffusely heterogeneous and hyperemic, implying thyroiditis. There is 8mm macrocalcification in the left mid thyroid. There is a multiple nodules in or adjacent to the isthmus with largest nodule described below. A nodule in the isthmus measures 0.8 cm and has the following features: * composition: solid (1) * echogenicity: hypoechoic (1) * shape: not taller than wide (0) * margins: smooth margins (0) * echogenic foci: no echogenic foci (0). The [place] ultrasound score is 2. Based on the AskMayoExpert Thyroid Nodule Care Process Model, the nodule has intermediate suspicion for malignancy (5-20%). Lymph nodes: No pathologically enlarged lymph nodes are seen in the neck, with evaluation of levels II-V. The thyroid nodule descriptions and categories are based on the Thyroid Nodule Care Process Model established by the [facility]. [email or web address]://[email or web address]/topic/clinical-answers/cnt-24023126/sec-[email or web address] 10833 The AskMayoExpert Thyroid Nodule CPM states the following recommendations: No suspicion or Extremely low-suspicion nodule: No FNA, no imaging f/u Low-suspicion nodule: FNA if greater than or equal to 25 mm; US f/u in 2-5 yrs if greater than or equal to 15 mm Intermediate-suspicion nodule: FNA if greater than or equal to 15 mm; US f/u in 1-3 yrs if greater than or equal to 10 mm High-suspicion nodule: FNA if greater than or equal to 10 mm (or smaller if desired); US f/u in 1 yr if not FNA Procedure Note Gary Avitia M.D. - 08/14/2024 EXAM: US THYROID COMPARISON: None. FINDINGS: The right thyroid lobe measures: 2.3 cm x 2.1 cm x 5.3 cm The left thyroid lobe measures: 2.1 cmx2.0 cmx5.3 cm The isthmus measures: 7.2 mm in AP diameter. The thyroid parenchyma is diffusely heterogeneous and hyperemic, implyingthyroiditis. There is 8mm macrocalcification in the left mid thyroid.There is a multiple nodules in or adjacent to the isthmus with largestnodule described below. A nodule in the isthmus measures 0.8 cm and has the following features: * composition: solid (1) * echogenicity: hypoechoic (1) * shape: not taller than wide (0) * margins: smooth margins (0) * echogenic foci: no echogenic foci (0). The [place] ultrasound score is 2. Based on the AskDeyoExpert Thyroid NoduleCare Process Model, the nodule has intermediate suspicion for malignancy(5-20%). Lymph nodes: No pathologically enlarged lymph nodes are seen in the neck,with evaluation of levels II-V. The thyroid nodule descriptions and categories are based on the ThyroidNodule Care Process Model established by the [facility].https://[email or web address]/topic/clinical-answers/cnt-84782266 /sec- [email or web address] The AskDeyoExpert Thyroid Nodule CPM states the followingrecommendations: No suspicion or Extremely low-suspicion nodule: No FNA, no imagingf/u Low-suspicion nodule: FNA if greater than or equal to 25 mm; US f/uin 2-5 yrs if greater than or equal to 15 mm Intermediate-suspicion nodule: FNA if greater than or equal to 15 mm;US f/u in 1-3 yrs if greater than or equal to 10 mm High-suspicion nodule: FNA if greater than or equal to 10 mm (orsmaller if desired); US f/u in 1 yr if not FNA IMPRESSION: 1. Diffusely heterogeneous and hyperemic thyroid gland, suggestingthyroiditis. 2. Multiple nodules in or adjacent to the isthmus with largest nodule 0.8cm. us Veronica Morton M.D. IMG US PROCEDURES Final Res ult * (ABNORMAL) Lipid Panel (07/24/2024 9:30 AM CDT) Triglycerides 85 mg/dL 07/24/2024 9:54 AM CDT [facility] Comment: ----REFERENCE VALUE---- Normal: <150 mg/dL Borderline High: 150-199 mg/dL High: 200-499 mg/dL Very High: > or =500 mg/dL Cholesterol, Total 163 mg/dL 2024 9:54 AM CDT [facility] Comment: ----REFERENCE VALUE---- Desirable: < 200 mg/dL Borderline High: 200 - 239 mg/dL High: > or = 240 mg/dL Cholesterol, LDL, Calculated 112 mg/dL 07/24/2024 9:54 AM CDT [facility] Comment: ----REFERENCE VALUE---- Desirable: <100 mg/dL Above Desirable: 100-129 mg/dL Borderline High: 130-159 mg/dL High: 160-189 mg/dL Very High: >=190 mg/dL ----ADDITIONAL INFORMATION---- LDL cholesterol calculated using the Rodriguez/NIH equation. Cholesterol, HDL 35(L) >=50 mg/dL 07/25/19 9:54 AM CDT [facility] Cholesterol, Non-HDL, Calculated 128 mg/dL 07/24/2024 9:54 AM CDT [facility] Comment: ----REFERENCE VALUE---- Desirable: <130 mg/dL Above Desirable: 130-159 mg/dL Borderline High: 160-189 mg/dL High: 190-219 mg/dL Very High: > or =220 mg/dL Fasting (8 HR or more) Yes 07/24/2024 9:31 AM CDT [facility] Blood (Blood, Venous) 07/24/2024 9:30 AM CDT 07/24/2024 9:31 AM CDT us Veronica Morton M.D. LAB BLOOD ADD-ON Final Resu lt [facility] [address] [place] [id number], [facility] [address] [address] * Thyroid Function [place] (07/24/2024 9:30 AM CDT) Pathologist [facility] TSH, Sensitive 2.9 0.3 - 4.2 mIU/L 07/24/2024 10:36 AM CDT [facility] Blood (Blood, Venous) 07/24/2024 9:30 AM CDT 07/24/2024 9:31 AM CDT us Veronica Morton M.D. LAB BLOOD ADD-ON Final Resu lt [facility] [address] [place] [address], [facility] [place] [address] * (ABNORMAL) CBC with Differential, Blood (07/24/2024 9:30 AM CDT) Pathologist [facility] Hemoglobin 13.5 11.6 - 15.0 g/dL 07/24/2024 9:34 AM CDT [facility]FL Hematocrit 38.7 35.5 - 44.9 % 07/24/2024 9:34 AM CDT [facility] Erythrocytes 4.35 3.92 - 5.13 x10(12)/L 07/24/2024 9:34 AM CDT [facility] MCV 89.0 78.2 - 97.9 fL 07/24/2024 9:34 AM CDT [facility] RBC Distrib Width 12.2 12.2 - 16.1 % 07/24/2024 9:34 AM CDT [facility] Platelet Count 233 157 - 371 x10(9)/L 07/24/2024 9:34 AM CDT [facility] Leukocytes 8.3 3.4 - 9.6 x10(9)/L 07/24/2024 9:34 AM CDT [facility] Neutrophils 4.32 1.56 - 6.45 x10(9)/L 07/24/2024 9:34 AM CDT [facility] Lymphocytes 3.10(H) 0.95 - 3.07 x10(9)/L 07/24/2024 9:34 AM CDT [facility] Monocytes 0.61 0.26 - 0.81 x10(9)/L 07/24/2024 9:34 AM CDT [facility] Eosinophils 0.25 0.03 - 0.48 x10(9)/L 07/24/2024 9:34 AM CDT [facility] Basophils <0.04 0.01 - 0.08 x10(9)/L 07/24/2024 9:34 AM CDT [facility] Blood (Blood, Venous) 07/24/2024 9:30 AM CDT 07/24/2024 9:31 AM CDT us Veronica Morton M.D. LAB [place] [address], [facility] [place] [address] * Hemoglobin A1c (07/24/2024 9:30 AM CDT) Hemoglobin A1c, B 5.4 4.2 - 5.6 % 07/24/2024 9:45 AM CDT [facility] Blood (Blood, Venous) 07/24/2024 9:30 AM CDT 07/24/2024 9:31 AM CDT us Veronica Morton M.D. LAB [place] [address], [facility] [place] [address] * (ABNORMAL) Glucose, Fasting (07/24/2024 9:30 AM CDT) Glucose, P 115(H) 70 - 100 mg/dL 07/24/2024 9:47 AM CDT [facility] Last Intake 11 hr 07/24/2024 9:31 AM CDT [facility] Blood (Blood, Venous) 07/24/2024 9:30 AM CDT 07/24/2024 9:31 AM CDT us Veronica Morton M.D. LAB BLOOD NON ADD-ON Final Result [facility] [address] [place] [id number], [facility] CN[facility] in [address] [address] * Comprehensive Metabolic Panel (07/24/2024 9:30 AM CDT) Potassium, P 4.2 3.6 - 5.2 mmol/L 07/24/2024 9:54 AM CDT CNFL Sodium, P 141 135 - 145 mmol/L 07/24/2024 9:54 AM CDT CNFL Chloride, P 103 98 - 107 mmol/L 07/24/2024 9:54 AM CDT CNFL Bicarbonate, P 28 22 - 29 mmol/L 07/24/2024 9:54 AM CDT CNFL Anion Gap, P 10 7 - 15 07/24/2024 9:54 AM CDT CNFL BUN (Blood Urea Nitrogen), P 20 6 - 21 mg/dL 07/24/2024 9:54 AM CDT CNFL Creatinine 0.71 0.59 - 1.04 mg/dL 07/24/2024 9:54 AM CDT CNFL Estimated GFR (eGFR) >90 >=60 mL/min/BS A 07/24/2024 9:54 AM CDT CNFL Comment: Estimated GFR calculated using the 2020 CKD_EPI creatinine equation. Calcium, Total, P 9.6 8.6 - 10.0 mg/dL 07/24/2024 9:54 AM CDT CNFL Glucose, P CANCELED mg/dL 07/24/2024 9:31 AM CDT CNFL Comment: Duplicate test request. Result canceled by the ancillary. Protein, Total, P 7.4 6.3 - 7.9 g/dL 07/24/2024 9:54 AM CDT CNFL Albumin, P 4.2 3.5 - 5.0 g/dL 07/24/2024 9:54 AM CDT CNFL Aspartate Aminotransferase (AST), P 27 8 - 43 U/L 07/24/2024 9:54 AM CDT CNFL Alkaline Phosphatase, P 55 35 - 104 U/L 07/24/2024 9:54 AM CDT CNFL Alanine Aminotransferase (ALT), P 28 7 - 45 U/L 07/24/2024 9:54 AM CDT CNFL Bilirubin, Total, P 0.5 0.0 - 1.2 mg/dL 07/24/2024 9:54 AM CDT CNFL Blood (Blood, Venous) 07/24/2024 9:30 AM CDT 07/24/2024 9:31 AM CDT us Veronica Morton M.D. LAB BLOOD ADD-ON Final Resu lt [facility] [address] [place] [address], [facility] CNFL [place] [address] * BI Breast Screening Bilateral with Tomosynthesis (07/03/2024 11:15 AM CDT) Anatomical Region Laterality Modality Breast, Breast Imaging RST L OS, Breast Imaging ARZ LOS, Breast Imaging FLA LOS Bilateral Mammography Impressions 07/04/2024 8:44 AM CDT Negative. RECOMMENDATION: Annual Screening Mammogram ASSESSMENT: BI-RADS: 1: Negative. Narrative 07/04/2024 8:44 AM CDT EXAM: BI BREAST SCREENING BILATERAL WITH TOMOSYNTHESIS Current study was evaluated with a Computer Aided Detection (CAD) system. INDICATION: Screening mammogram. COMPARISON: Prior exam(s) were available and reviewed for comparison. DENSITY: b. There are scattered areas of fibroglandular density. FINDINGS: No mammographic findings of malignancy. Procedure Note Lilia Bauman D.O. - 07/04/2024 EXAM: BI BREAST SCREENING BILATERAL WITH TOMOSYNTHESIS Current study was evaluated with a Computer Aided Detection (CAD) system. INDICATION: Screening mammogram. COMPARISON: Prior exam(s) were available and reviewed for comparison. DENSITY: b. There are scattered areas of fibroglandular density. FINDINGS: No mammographic findings of malignancy. IMPRESSION: Negative. RECOMMENDATION: Annual Screening Mammogram ASSESSMENT: BI-RADS: 1: Negative. Veronica Morton M.D. IMG BI PROCEDURES Final Res ult from Last 3 Months or Most Recently Relevant to Health Maintenance Insurance [facility] Care Teams Junior Manufacturing Engineer Relationship Specialty Start Date End Date Veronica Morton M.D. [address] [place] [phone] PCP - General Family Medicine 04/21/21
--- OUTSIDE RECORDS SUMMARY | 2024-10-13 00:56 | XMS_ITS | Encounter Summary ---
Author Organization [facility] Address [address] [place] [address] Care Team Providers Care Insurance Territory Manager Name Role Phone Veronica Morton M.D. Primary Care Provider [phone] Reason for Visit * Reason Comments Med Refill Encounter Details Date Type Department Care Team (Late st Contact Info) Description 09/26/2024 Refill Department of Family Medicine, [facility], in [place], [place] [address] [place] [address] [place] [phone] Mattie Carter M.D. [address] [place] [phone] Med Refill Social History Tobacco Use Types Packs/Day Years Used Date Smoking Tobacco: Former Cigarettes 0.5 5 1 05/15/1985 - 03/15/1991 Smokeless Tobacco: Never Alcohol Use Standard Drinks/Week Comments Not Currently 0 (1 standard drink = 0.6 oz pur e alcohol) [facility] Utilities Answer Date Recorded In the past 12 months has [employer] electric, gas, oil, or water company threatened [...] any clubs o r organizations such as jew groups, unions, fraternal or athletic groups, or [...] Answer Date Recorded PHQ-2 Score 0 08/06/2024 [facility] - Occupational [...] your living situation today? I have a [facility] place to live 08/30/2024 Education Answer Date Recorded What is the highest level of school you have completed or the highest degree you have received? Associate degree: academic program 05/02/2021 Comments No Sex and Gender Information Value Date Recorded Sex Assigned at Female 05/02/2021 1:59 PM VAULT MAKER Legal Sex Female 8:17 AM VAULT MAKER Gender Identity Female 05/02/2021 1:59 PM VAULT MAKER Sexual Orientation Straight 05/02/2021 1: 59 PM VAULT MAKER documented as of this encounter Miscellaneous Notes * Telephone Encounter - Veronica Morton M.D. - 09/29/2024 6:25 PM CDT Prescription approved. documented in this encounter Plan of Treatment Not on file documented as of this encounter Visit Diagnoses Diagnosis Pain Hip Bilateral documented in this encounter Additional Health Concerns Assessment Noted Time PHQ-9 Depression Total Score: 0 08/07/19 25 8:04 PM CDT documented as of this encounter Care Teams Insurance Territory Manager Relationship Specialty Start Date End Date Veronica Morton M.D. [id number] [phone] PCP - General Family Medicine 04/21/21 documented as of this encounter
--- OUTSIDE RECORDS SUMMARY | 2024-10-13 00:56 | XMS_ITS | Encounter Summary ---
Author Organization [facility] Address [address] [place] [address] Care Team Providers Care Certified Performance Technologist Name Role Phone Veronica Morton M.D. Primary Care Provider [phone] Reason for Visit * Reason Onset Date Comments Med Refill 09/14/2024 Encounter Details Date Type Department Care Team (Late st Contact Info) Description 09/14/2024 Clinical Communication Department of Family Medicine, [facility], in [address] [phone] Veronica Morton M.D. [address] [place] [phone] Med Refill Social History Tobacco Use Types Packs/Day Years Used Date Smoking Tobacco: Former Cigarettes 0.5 5 1 05/15/1985 - 03/15/1991 Smokeless Tobacco: Never Alcohol Use Standard Drinks/Week Comments Not Currently 0 (1 standard drink = 0.6 oz pur e alcohol) [facility] Utilities Answer Date Recorded In the past [...] 07/15/2022 How often do you attend chur or buddhism services? 1 to 4 times per year 07/15/2022 Do you belong to any clubs o r organizations such as religion groups, unions, fraternal or athletic groups, or [...] Answer Date Recorded PHQ-2 Score 0 08/06/2024 [facility] Occupat ional [facility] - Occupational [...] your living situation today? I have a [facility] place to live 08/30/2024 Education Answer Date Recorded What is the highest level of school you have completed or the highest degree you have received? Associate degree: academic program 05/02/2021 Comments No Sex and Gender Information Value Date Recorded Sex Assigned at Female 05/02/2021 1:59 PM VP SOFTWARE SUPPORT Legal Sex Female 8:17 AM VP SOFTWARE SUPPORT Gender Identity Female 05/02/2021 1:59 PM VP SOFTWARE SUPPORT Sexual Orientation Straight 05/02/2021 1: 59 PM VP SOFTWARE SUPPORT documented as of this encounter Miscellaneous Notes * Telephone Encounter - Zohreh Holloway - 09/14/2024 6:12 PM CDT Duplicate request. documented in this encounter Plan of Treatment Not on file documented as of this encounter Visit Diagnoses Not on filedocumented in this encounter Additional Health Concerns Assessment Noted Time PHQ-9 Depression Total Score: 0 08/07/19 25 8:04 PM CDT documented as of this encounter Care Teams Certified Performance Technologist Relationship Specialty Start Date End Date Veronica Morton M.D. [address] [phone] PCP - General Family Medicine 04/21/21 documented as of this encounter
--- OUTSIDE RECORDS SUMMARY | 2024-10-13 00:56 | XMS_ITS | Encounter Summary ---
Author Organization [facility] Address [address] [place] [address] Care Team Providers Care Captain Waiter Name Role Phone Veronica Morton M.D. Primary Care Provider [phone] Reason for Visit * Reason Comments Med Refill Encounter Details Date Type Department Care Team (Late st Contact Info) Description 09/08/2024 Refill Department of Family Medicine, [facility], in [address] [phone] Veronica Morton M.D. [address] [place] [phone] Med Refill Social History Tobacco Use Types Packs/Day Years Used Date Smoking Tobacco: Former Cigarettes 0.5 5 1 05/15/1985 - 03/15/1991 Smokeless Tobacco: Never Alcohol Use Standard Drinks/Week Comments Not Currently 0 (1 standard drink = 0.6 oz pur e alcohol) [facility] Utilities Answer Date Recorded In [...] often do you attend chur ch or scientology services? 1 to 4 times per year 07/15/2022 Do you belong to any clubs o r organizations such as christian groups, unions, fraternal or athletic groups, or [...] Answer Date Recorded PHQ-2 Score 0 08/06/2024 [facility] Occupat ional Health - Occupational [...] your living situation today? I have a [facility] place to live 08/30/2024 Education Answer Date Recorded What is the highest level of school you have completed or the highest degree you have received? Associate degree: academic program 05/02/2021 Comments No Sex and Gender Information Value Date Recorded Sex Assigned at Female 05/02/2021 1:59 PM SIGNAL ENGINEER Legal Sex Female 8:17 AM SIGNAL ENGINEER Gender Identity Female 05/02/2021 1:59 PM SIGNAL ENGINEER Sexual Orientation Straight 05/02/2021 1: 59 PM SIGNAL ENGINEER documented as of this encounter Miscellaneous Notes * Telephone Encounter - Veronica Morton M.D. - 09/12/2024 10:04 PM CDT Prescription approved. documented in this encounter Plan of Treatment Not on file documented as of this encounter Visit Diagnoses Diagnosis Hypothyroidism Allergy Seasonal documented in this encounter Additional Health Concerns Assessment Noted Time PHQ-9 Depression Total Score: 0 08/07/19 25 8:04 PM CDT documented as of this encounter Care Teams Captain Waiter Relationship Specialty Start Date End Date Veronica Morton M.D. NPMarco: [id number] [phone] PCP - General Family Medicine 04/21/21 documented as of this encounter
--- OUTSIDE RECORDS SUMMARY | 2024-10-13 00:57 | XMS_ITS | Encounter Summary ---
Author Organization [facility] Address [address] [place] [address] Care Team Providers Care Office Administration Instructor Name Role Phone Veronica Morton M.D. Primary Care Provider [phone] Reason for Visit * Reason Onset Date Comments Med Refill 09/13/2024 Encounter Details Date Type Department Care Team (Late st Contact Info) Description 09/13/2024 Refill Department of Family Medicine, [facility], in [address] [phone] Veronica Morton M.D. [address] [place] [address] [phone] Med Refill Social History Tobacco Use Types Packs/Day Years Used Date Smoking Tobacco: Former Cigarettes 0.5 5 1 05/15/1985 - 03/15/1991 Smokeless Tobacco: Never Alcohol Use Standard Drinks/Week Comments Not Currently 0 (1 standard drink = 0.6 oz pur e alcohol) [facility] Utilities Answer Date Recorded In the [...] How often do you attend chur or quaker services? 1 to 4 times per year 07/15/2022 Do you belong to any clubs o r organizations such as pentecostalism groups, unions, fraternal or athletic groups, or [...] Answer Date Recorded PHQ-2 Score 0 08/06/2024 [facility] of Occupat ional Health - Occupational Stress [...] your living situation today? I have a [facility] place to live 08/30/2024 Education Answer Date Recorded What is the highest level of school you have completed or the highest degree you have received? Associate degree: academic program 05/02/2021 Comments No Sex and Gender Information Value Date Recorded Sex Assigned at Female 05/02/2021 1:59 PM SILK FOLDER Legal Sex Female 8:17 AM SILK FOLDER Gender Identity Female 05/02/2021 1:59 PM SILK FOLDER Sexual Orientation Straight 05/02/2021 1: 59 PM SILK FOLDER documented as of this encounter Miscellaneous Notes * Telephone Encounter - Veronica Morton M.D. - 09/13/2024 5:26 PM CDT Prescription approved. documented in this encounter Plan of Treatment Not on file documented as of this encounter Visit Diagnoses Diagnosis Deficiency Estrogen Post Menopausal documented in this encounter Additional Health Concerns Assessment Noted Time PHQ-9 Depression Total Score: 0 08/07/19 25 8:04 PM CDT documented as of this encounter Care Teams Office Administration Instructor Relationship Specialty Start Date End Date Veronica Morton M.D. [id number] [phone] PCP - General Family Medicine 04/21/21 documented as of this encounter
--- OUTSIDE RECORDS SUMMARY | 2024-10-13 00:57 | XMS_ITS | Encounter Summary ---
Author Organization [facility] Address [address] [place] [address] Care Team Providers Care Billet Grinder Name Role Phone Veronica Morton M.D. Primary Care Provider [phone] Encounter Details Date Type Department Care Team (Late st Contact Info) Description 08/14/2024 Results Follow-Up Department of Family Medicine, [facility], in [address] [phone] Veronica Morton M.D. [address] [place] [address] [phone] [place] Thyroid Social History Tobacco Use Types Packs/Day Years Used Date Smoking Tobacco: Former Cigarettes 0.5 5 1 05/15/1985 - 03/15/1991 Smokeless Tobacco: Never Alcohol Use Standard Drinks/Week Comments Not Currently 0 (1 standard drink = 0.6 oz pur e alcohol) [facility] Utilities Answer Date Recorded In the [...] often do you attend chur ch or baptist services? 1 to 4 times per year 07/15/2022 Do you belong to any clubs o r organizations such as taoist groups, unions, fraternal or athletic groups, or [...] Answer Date Recorded PHQ-2 Score 0 08/06/2024 [facility] Occupat ional Health - [...] living situation today? I have a [facility] place to live 08/30/2024 Education Answer Date Recorded What is the highest level of school you have completed or the highest degree you have received? Associate degree: academic program 05/02/2021 Comments No Sex and Gender Information Value Date Recorded Sex Assigned at Female 05/02/2021 1:59 PM AUTOMOTIVE FLEET SUPERVISOR Legal Sex Female 8:17 AM AUTOMOTIVE FLEET SUPERVISOR Gender Identity Female 05/02/2021 1:59 PM AUTOMOTIVE FLEET SUPERVISOR Sexual Orientation Straight 05/02/2021 1: 59 PM AUTOMOTIVE FLEET SUPERVISOR documented as of this encounter Plan of Treatment Not on file documented as of this encounter Visit Diagnoses Not on filedocumented in this encounter Additional Health Concerns Assessment Noted Time PHQ-9 Depression Total Score: 0 08/07/19 25 8:04 PM CDT documented as of this encounter Care Teams Billet Grinder Relationship Specialty Start Date End Date Veronica Morton M.D. [address] [phone] PCP - General Family Medicine 04/21/21 documented as of this encounter
--- OUTSIDE RECORDS SUMMARY | 2024-10-13 00:57 | XMS_ITS | Encounter Summary ---
Author Organization [facility] Address [address] [place] [address] Care Team Providers Care Plastic Extruding Machine Operator Name Role Phone Veronica Morton M.D. Primary Care Provider [phone] Reason for Referral * Outpatient (Routine) - Authorized Specialty Diagnoses / Procedures Referred By Adele rabago Referred To Contact Diagnoses Nodule Thyroid Procedures US Thyroid Veronica Morton M.D. [address] [place] [phone] Phone: tel: fax: [facility] Referral ID Status Reason Start Date Expiration Date V isits Requested Visits Authorized [id number] Authorized 08/14/2024 11/14/2025 1 1 Encounter Details Date Type Department Care Team (Late st Contact Info) Description 08/14/2024 Orders Only Department of Family Medicine, [facility], in [address] [phone] Veronica Morton M.D. [address] [place] [phone] Nodule Thyroid (Primary Dx) Social History Tobacco Use Types Packs/Day Years Used Date Smoking Tobacco: Former Cigarettes 0.5 5 1 05/15/1985 - 03/15/1991 Smokeless Tobacco: Never Alcohol Use Standard Drinks/Week Comments Not Currently 0 (1 standard drink = 0.6 oz pur e alcohol) [facility] Utilities Answer Date Recorded In the past [...] often do you attend chur ch or muslim services? 1 to 4 times per year 07/15/2022 Do you belong to any clubs o r organizations such as mosque groups, unions, fraternal or athletic groups, or [...] Answer Date Recorded PHQ-2 Score 0 08/06/2024 [facility] of Occupat ional [facility] - Occupational Stress Questionnaire Answer Date Recorded [...] your living situation today? I have a [facility] place to live 08/30/2024 Education Answer Date Recorded What is the highest level of school you have completed or the highest degree you have received? Associate degree: academic program 05/02/2021 Comments No Sex and Gender Information Value Date Recorded Sex Assigned at Female 05/02/2021 1:59 PM FORWARD AIR CONTROLLER/AIR OFFICER Legal Sex Female 8:17 AM FORWARD AIR CONTROLLER/AIR OFFICER Gender Identity Female 05/02/2021 1:59 PM FORWARD AIR CONTROLLER/AIR OFFICER Sexual Orientation Straight 05/02/2021 1: 59 PM FORWARD AIR CONTROLLER/AIR OFFICER documented as of this encounter Plan of Treatment Scheduled Orders Name Type Priority Associated Diagnoses Orde r Schedule US Thyroid Imaging RAD - Routine (m ost inpatients and all outpatients) Nodule Thyroid Expected: 08/15/2027, Expires: 08/14/2029 documented as of this encounter Visit Diagnoses Diagnosis Nodule Thyroid- Primary documented in this encounter Additional Health Concerns Assessment Noted Time PHQ-9 Depression Total Score: 0 08/07/19 25 8:04 PM CDT documented as of this encounter Care Teams Plastic Extruding Machine Operator Relationship Specialty Start Date End Date Veronica Morton M.D. [address] [place] [phone] PCP - General Family Medicine 04/21/21 documented as of this encounter
== END 2024-10-12 09:46 | disposition home or self-care (01) ==
LOC: RAD 09:46
PROVIDERS: PCP Family Medicine; Visit Provider Orthopaedic Surgery
DX: M16.11 Unilateral primary osteoarthritis, right hip (principal); M25.551 Pain in right hip
CPT/HCPCS: 20610; 77002; Q9966